=== PATIENT | male | born 1965 | race African-American/Black ===

== ENCOUNTER 2018-12-13 12:04 | Inpatient (IN) | payer OTHER ==
--- NOTE | 2018-12-13 13:10 | HP ---
CIWA Score - Admission Criteria [facility] Guidelines: Admission for Medically Managed Detox: Requires at least one of the followin. CIWA greater than 12 2. Seizures within the past 24 hours 3. Delirium tremens within the past 24 hours 4. Hallucinations within the past 24 hours 5. Acute intervention needed for co occurring medical disorder 6. Acute intervention needed for co occurring psychiatric disorder 7. Severe withdrawal that cannot be handled at a lower level of care (continued vomiting, continued diarrhea, abnormal vital signs) requiring intravenous medication and/or fluids 8. Admission [facility] Chief Complaint: I am here for rehab from alcohol and cocaine Allergies/Adverse Reactions: Allergies Allergy/AdvReac Type Severity Reaction Status Date / Time Penicillins Allergy Severe hallucinati Verified 04/16/16 15:17 on lactose Allergy Verified 12/13/18 12:27 pork derived (porcine) Allergy Verified 12/13/18 12:27 fish Allergy Severe Swelling Uncoded 04/16/16 15:17 tomato sauce Allergy Mild Itching Uncoded 04/16/16 15:35 History of Present Illness: this 53 years old male with alcohol and cocaine dependence seeking rehab, completed detox from 12/05/18 to multiple admissions in the past low back pain 3 herniated disc l3/l4/.l5 since 2004 anxiety and depression longest period sobriety 14 months nicotine 1/2 pack requested nicotine gum Exam Limitations: No Limitations - Ebola screening Have you traveled outside of the country in the last 21 days: No Have you had contact with anyone from an Ebola affected area: No Do you have a fever: No - Review of Systems Constitutional: No Symptoms Reported EENT: reports: No Symptoms Reported Respiratory: reports: No Symptoms reported Cardiac: reports: No Symptoms Reported GI: reports: No Symptoms Reported : reports: No Symptoms Reported Musculoskeletal: reports: No Symptoms Reported Integumentary: reports: No Symptoms Reported Neuro: reports: No Symptoms reported Endocrine: reports: No Symptoms Reported Hematology: reports: No Symptoms Reported Psychiatric: reports: No Sypmtoms Reported, Judgement Intact, Mood/Affect Appropiate, Anxious, Depressed Other Systems: Reviewed and Negative Patient History - Patient Medical History Hx Anemia: No Hx Asthma: No Hx Chronic Obstructive Pulmonary Disease (COPD): No Hx Cancer: No Hx Cardiac Disorders: No Hx Congestive Heart Failure: No Hx Hypertension: No Hx Hypercholesterolemia: No Hx Pacemaker: No HX Cerebrovascular Accident: No Hx Seizures: No Hx Dementia: No Hx Diabetes: No Hx Gastrointestinal Disorders: No Hx Liver Disease: No Hx Genitourinary Disorders: No Hx Sexually Transmitted Disorders: No Hx Renal Disease (ESRD): No Hx Thyroid Disease: No Hx Human Immunodeficiency Virus (HIV): No (last 11/26/18 negative) Hx Hepatitis C: No Hx Depression: Yes (anxiety) Hx Suicide Attempt: No Hx Bipolar Disorder: No Hx Schizophrenia: No Other Medical History: no sucidal.no homicidal,lumbar herniated disc - Patient Surgical History Past Surgical History: No Hx Neurologic Surgery: No Hx Cataract Extraction: No Hx Cardiac Surgery: No Hx Lung Surgery: No Hx Breast Surgery: No Hx Breast Biopsy: No Hx Abdominal Surgery: No Hx Appendectomy: No Hx Cholecystectomy: No Hx Genitourinary Surgery: No Hx Section: No Hx Orthopedic Surgery: No Anesthesia Reaction: No - PPD History Previous Implant?: Yes Documented Results: Negative w/o proof Implanted On Prior [facility] Admission?: No Date: 04/18/16 Results: 0 MM PPD to be Administered?: Yes - Smoking Cessation Smoking history: Current every day smoker Have you smoked in the past 12 months: Yes Aproximately how many cigarettes per day: 10 Cigars Per Day: 0 Hx Chewing Tobacco Use: No Initiated information on smoking cessation: Yes 'Breaking Loose' booklet given: 12/13/18 - Substance & Tx. History Hx Alcohol Use: Yes Hx Substance Use: Yes Substance Use Type: Alcohol, Cocaine Hx Substance Use Treatment: Yes (12/05/18 to 12/13/18 [facility]) - Substances abused Alcohol Substance route: Oral Frequency: Daily Amount used: 4 pints of rum Age of first use: 18 Date of last use: 12/04/18 Cocaine Substance route: Smoking Frequency: 1-2 times per week Amount used: 100$ Age of first use: 18 Date of last use: 12/04/18 Family Disease History - Family Disease History Family Disease History: Heart Disease: Father (CHF,HTN), Mother (CHF,HTN), Other : Brother (dsa) Admission Physical Exam [facility] - Vital Signs Vital Signs: Vital Signs - 24 hr 12/13/18 12:55 Temperature 97.7 F Pulse Rate 57 L Respiratory 20 Rate Blood Pressure 134/82 - Physical General Appearance: Yes: Within Normal Limits HEENTM: Yes: Normal ENT Inspection, RICKEY, Pharynx Normal Respiratory: Yes: Within Normal Limits, Lungs Clear, Normal Breath Sounds Neck: Yes: Within Normal Limits, Supple, Trachea in good position Breast: Yes: Within Normal Limits Cardiology: Yes: Within Normal Limits, Regular Rhythm, Regular Rate, S1, S2 Abdominal: Yes: Normal Bowel Sounds, Non Tender, Flat, Soft Genitourinary: Yes: Within Normal Limits Back: Yes: Within Normal Limits Musculoskeletal: Yes: Within Normal Limits Extremities: Yes: Within Normal Limits Neurological: Yes: ground mixer II-XII NML intact, Fully Oriented, Alert, Motor Strength 5/5 Integumentary: Yes: Within Normal Limits Lymphatic: Yes: Within Normal Limits - Diagnostic (1) Alcohol dependence Current Visit: Yes Status: Acute (2) Cocaine dependence Current Visit: Yes Status: Acute (3) History of herpes genitalis Current Visit: No Status: Acute (4) Low back pain Current Visit: No Status: Acute (5) Weight loss Current Visit: No Status: Acute (6) Lumbar herniated disc Current Visit: Yes Status: Acute (7) Anxiety and depression Current Visit: Yes Status: Acute Cleared for Admission [facility] - Detox or Rehab Claeared for Rehab Admission: Yes Breathalyzer - Breathalyzer Breathalyzer: 0 Urine Drug Screen - Test Device Lot number: [id number] Expiration date: 08/13/20 - Control Is test valid?: Yes - Results Drug screen NEGATIVE: Yes Inpatient Rehab Admission - Rehab Decision to Admit Inpatient rehab admission?: Yes - Initial Determination Are CD services needed?: Yes Free of communicable disease: Yes Not in need of hospitalization: Yes - Rehab Admission Criteria Previous failed treatment: Yes Poor recovery environment: Yes Comorbidities: Yes Lacks judgement: No Patient is meeting Inpatient Rehab admission criteria:: Yes
[2018-12-13] MEDS ORDERED: MAGNESIUM HYDROX 2400MG/30ML ORAL SUSPENSION 30 ML CUP PO PRN (13:22)
[2018-12-13] MEDS ORDERED: IBUPROFEN 400 MG TABLET (FP) PO PRN (13:22)
[2018-12-13] MEDS ORDERED: MENTHOL/PHENOL 1 EACH UD MM PRN (13:22)
[2018-12-13] MEDS ORDERED: hydrOXYzine PAMOATE 50 MG CAPSULE (FP) PO PRN (13:22)
[2018-12-13] MEDS ORDERED: MAG HYDROX/AL HYDROX/SIMETH 30 ML UNIT-DOSE CUP PO PRN (13:22)
[2018-12-13] MEDS ORDERED: guaiFENesin 200 MG/10 ML 10 ML UNIT-DOSE CUPS PO PRN (13:22)
[2018-12-13] MEDS ORDERED: P-EPHED 60MG/TRIPROLIDI 2.5MG TABLET PO PRN (13:22)
[2018-12-13] MEDS ORDERED: LOPERAMIDE HCL 2 MG CAPSULE PO PRN (13:22)
[2018-12-13] MEDS ORDERED: MAGNESIUM CITRATE 300 ML BOTTLE PO PRN (13:22)
[2018-12-13] MEDS ORDERED: ACETAMINOPHEN 325 MG TABLET (FP) PO PRN (13:22)
[2018-12-13] MEDS ORDERED: CYCLOBENZAPRINE HCL 10 MG TABLET (FP) PO PRN (13:24)
[2018-12-13] MEDS ORDERED: traZODone HCL 100 MG TABLET (FP) PO PRN (13:24)
[2018-12-13] MEDS ORDERED: TUBERCULIN PPD 5 TU/0.1ML VIAL ID ONE (14:09)
[2018-12-13 17:49] LABS: HEMATOCRIT 41.5 % (35.4-49); HEMOGLOBIN 14.3 GM/dL (11.7-16.9); MCH 31.4 pg (25.7-33.7); MCHC 34.4 g/dl (32.0-35.9); MEAN CELL VOLUME 91.3 fl (80-96); MEAN PLT VOLUME 8.4 fl (7.5-11.1); PLATELET COUNT 280 K/MM3 (134-434); RBC 4.54 M/mm3 (4.00-5.60); RDW 13.6 % (11.9-15.9); WHITE BLOOD COUNT 9.2 K/mm3 (4.0-10.0)
[2018-12-13 18:04] LABS: ALBUMIN 3.5 g/dl (3.4-5.0); ALK PHOS 90 U/L (45-117); ANION GAP 6 MMOL/L (8-16); BILIRUBIN,TOTAL 0.4 mg/dL (0.2-1); BLOOD UREA NITROGEN 18 mg/dL (7-18); CALCIUM 8.5 mg/dL (8.5-10.1); CHLORIDE 103 mmol/L (98-107); CO2 27 mmol/L (21-32); CREATININE 1.4 mg/dL (0.55-1.3); GLUCOSE,RANDOM 113 mg/dL (74-106); POTASSIUM 3.9 mmol/L (3.5-5.1); SGOT/AST 15 U/L (15-37); SGPT/ALT 40 U/L (13-61); SODIUM 136 mmol/L (136-145); TOT PROT 6.8 g/dl (6.4-8.2)
[2018-12-13] MEDS: THIAMINE HCL 100 MG TABLET (FP) PO SCH (21:53)
[2018-12-13] MEDS ORDERED: MELATONIN 5 MG TABLETS PO PRN (22:00)
[2018-12-14] MEDS: PRENATAL VITAMINS W/ FOLIC ACID TABLET (FP) PO SCH (10:45)
[2018-12-14] MEDS: SERTRALINE HCL 50 MG TABLET (FP) PO SCH (10:45)
[2018-12-14] MEDS: valACYclovir HCL 500 MG TABLET (FP) PO SCH (10:45)
--- NOTE | 2018-12-14 17:28 | PN ---
[facility] Progress Note Note: nurse called- pt requesting nicotine gum , reports 1 ppd tobacco . order placed
[2018-12-14] MEDS: NICOTINE POLACRILEX 4 MG GUM BUC PRN (17:39)
[2018-12-14] MEDS: THIAMINE HCL 100 MG TABLET (FP) PO SCH (21:57)
[2018-12-15 07:08] VITALS: BP 108/67; PULSE 57; TEMP 98.2
[2018-12-15] MEDS: SERTRALINE HCL 50 MG TABLET (FP) PO SCH (09:52)
[2018-12-15] MEDS: PRENATAL VITAMINS W/ FOLIC ACID TABLET (FP) PO SCH (09:52)
[2018-12-15] MEDS: valACYclovir HCL 500 MG TABLET (FP) PO SCH (09:52)
[2018-12-15] MEDS: NICOTINE POLACRILEX 4 MG GUM BUC PRN (10:02)
--- NOTE | 2018-12-15 13:22 | PN ---
[facility] Progress Note Note: NURSE RENNY LANGFORD INFORMED THIS PROVIDER THAT PT SIGNED OUT AMA AND REPORTED HE HAS OWN HOME MEDICATION AND WANTS TO LEAVE. THIS PROVIDER WAS NOT ABLE TO MEDICALLY ENCOUNTER WITH THE PATIENT BEFORE SIGNING OUT. Home Medications Medication Instructions Recorded Valacyclovir HCl [Valtrex -] 500 mg PO DAILY #7 tablet 04/15/15 Cyclobenzaprine HCl [Flexeril 10 10 mg PO TID PRN 12/13/18 mg] Sertraline HCl [Zoloft -] 50 mg PO DAILY 12/13/18 traZODone HCL [Trazodone HCl] 100 mg PO HS PRN 12/13/18 Vital Signs 12/15/18 07:07 Temperature 98.2 F Pulse Rate 57 L Respiratory 18 Rate Blood Pressure 108/67 Laboratory Tests 12/13/18 12/13/18 12/13/18 13:30 13:30 13:30 WBC 9.2 RBC 4.54 Hgb 14.3 Hct 41.5 MCV 91.3 MCH 31.4 MCHC 34.4 RDW 13.6 Plt Count 280 D MPV 8.4 Sodium 136 Potassium 3.9 Chloride 103 Carbon Dioxide 27 Anion Gap 6 L BUN 18 Creatinine 1.4 H Creat Clearance w eGFR 53.22 Random Glucose 113 H Calcium 8.5 Total Bilirubin 0.4 AST 15 ALT 40 Alkaline Phosphatase 90 Total Protein 6.8 Albumin 3.5 RPR Titer Nonreactive PLAN:PT SIGNED OUT AMA. All Active Problems Alcohol dependence (Chronic) History of herpes genitalis (Chronic) Low back pain (Chronic) Lumbar herniated disc (Chronic) Weight loss (Acute) Alcohol dependence (Chronic) Cocaine dependence (Chronic) Nicotine dependence (Chronic)
== END 2018-12-15 10:15 | disposition left against medical advice (07) | DRG 770 ==
LOC: YASAS 12:04 → Y5N 13:27
PROVIDERS: ADMIT Neuromusculoskeletal Medicine & OMM; ATTEND Neuromusculoskeletal Medicine & OMM
PROC: HZ42ZZZ Group Counseling for Substance Abuse Treatment, Cognitive-Behavioral (ICD-10-PCS; principal; 2018-12-13)
DX: F10.20 Alcohol dependence, uncomplicated (principal); F14.20 Cocaine dependence, uncomplicated; F41.8 Other specified anxiety disorders; F32.9 Major depressive disorder, single episode, unspecified; M54.16 Radiculopathy, lumbar region; R63.4 Abnormal weight loss; Z68.20 Body mass index [BMI] 20.0-20.9, adult; Z86.19 Personal history of other infectious and parasitic diseases; Z88.0 Allergy status to penicillin; Z91.018 Allergy to other foods
CPT/HCPCS: 36415; 80053; 85027; 86593